=== PATIENT | male | born 1960 | race Caucasian/White ===

== ENCOUNTER 2018-07-22 00:53 | Inpatient (IN) ==
[2018-07-22] MEDS ORDERED: *HR* Heparin 5,000 UNIT/ML VIAL IVP PRN (01:13)
[2018-07-22] MEDS ORDERED: Nitroglycerin 0.4 MG TAB.SUBL SL PRN (01:13)
[2018-07-22] MEDS ORDERED: *HR* Morphine 2 MG/ML SYRINGE IVP PRN (01:13)
[2018-07-22 01:15] LABS: Basophils # 0.1 K/mcL (0.0-0.2); Basophils % 0.7 %; Eosinophils # 0.3 K/mcL (0.0-0.6); Eosinophils % 3.6 %; Hematocrit 43.9 % (37.5-50.1); Hemoglobin 14.7 g/dL (12.9-16.9); Immature Granulocytes % 0.5 % (0-4); Lymphocytes # 3.1 K/mcL (0.6-4.6); Mean Corpuscular HGB Conc 33.5 g/dL (31.6-35.5); Mean Corpuscular Hemoglobin 28.1 pg (28.0-33.3); Mean Corpuscular Volume 83.9 fL (83.0-100.0); Mean Platelet Volume 9.3 fL (9.4-12.4); Monocytes # 0.8 K/mcL (0.0-1.3); Monocytes % 8.4 %; Neutrophils # 4.6 K/mcL (1.6-8.9); Platelet Count 275 K/mcL (140-400); Red Blood Count 5.23 M/mcL (4.19-5.50); Segmented Neutrophils % 51.8 %
[2018-07-22 01:26] LABS: Heparin anti-factor XA UFH 0.41 IU/mL (0.30-0.70); Prothrombin Time 10.9 Seconds (9.4-12.1)
--- NOTE | 2018-07-22 01:32 | Internal Med History&Physical ---
Date of Encounter: 07/22/18 Time of Encounter: 01: Internal Medicine - H&P: HPI Chief complaint: chest pain Admitted From: Home Plans for Post Hospital Care: Home History of present illness: Tacos Moore is a 58 year old man, active smoker with a history of coronary artery disease reporting an VA in 2004 that required stents. He reports having no other medical issues since then. He presents now on transfer from [facility] where he initially went to with complaints of chest pain for 1 week. He states that it started last Monday but has been intermittent. He says it does not feel like when he had an VA as it is not precipitated by physical activity, it feels worse when he is supine and improves when he gets up. He says the pain goes across his chest and is felt in his axillae. The pain was greatly worsened today, severe and constant that brought him to his knees. At [facility] he was seen to have an EKG with normal sinus rhythm as reviewed by me, grossly normal labs but a slight troponin elevation of 0.704. He was given loading dose of aspirin, started on heparin drip and ultimately on nitroglycerin drip to ease the chest pain. On arrival here he states he is now chest pain free. He denies alcohol use. He denies fever, chills, cough, expectoration, nausea, vomiting and abdominal pain. No headaches or lightheadedness. No palpitations. PMHx: As above. Denies any prior surgeries. SHx: Active smoker, denies illicit drug use. FHx: HTN in father. Review of systems: All systems reviewed and negative except as listed above in the HPI. Past Med Surg Social Fam HX - Past Surgical History Additional surgical history: cardiac stent placed in 2003 - Social History Smoking Status: Current every day smoker Packs per day: 1.5 Smokeless Tobacco Status: No Alcohol use: none Drug use: none - Family History Father Cause of : VA Hx Family Cardiac Disorders: Yes Hx Family Respiratory Disorders: No All Systems PM: A 10-system review of systems was performed and is negative for pertinent findings except as documented above in the HPI. - Constitutional Vitals: Temp Pulse Resp BP Pulse Ox 97.7 F 61 15 134/85 94 07/22/18 00:42 07/22/18 00:42 07/22/18 00:42 07/22/18 00:42 07/22/18 00:42 Exam: Vitals: Reviewed General: Well-developed male lying comfortably in bed in no acute distress Skin: Warm and supple. HEENT: Moist mucous membranes. No conjunctivae pallor. Neck: No lymphadenopathy. No JVD. No carotid bruits. No palpable thyroid. Chest: Normal thoracic expansion. Normal breath sounds. Clear to auscultation. Heart: Normal S1 & S2; rhythmic. No rubs or murmurs. Abdomen: Non-distended, soft and non-tender to palpation. No peritoneal reaction. Liver is normal in size. Spleen is not palpable. Extremities: No clubbing, cyanosis or edema. No calf tenderness. Normal distal pulses. Neurological: Awake, alert and oriented to person, place and time. No focal deficits. Psych: Affect appropriate. Internal Med - H&P Results - Labs CBC & Chem 7: 07/22/18 00:59 Labs: Short CBC 07/22/18 Range/Units 00:59 WBC 8.9 (4.3-11.1) K/mcL Hgb 14.7 (12.9-16.9) g/dL Hct 43.9 (37.5-50.1) % Plt Count 275 (140-400) K/mcL Neutrophils # 4.6 (1.6-8.9) K/mcL - Assessment and plan (1) Chest pain Current Visit: Yes Status: Acute Assessment and plan: The patient has had chest pain for about a week. He has the risk factor of underlying CAD and being an active smoker. His EKG shows normal sinus rhythm but he is somewhat bradycardic fluctuating between 55-65. Will obtain repeat EKG, monitor on telemetry, repeat troponins, hold nitro for now but resume if chest pain recurs, continue heparin gtt, TTE in the morning and cardiology consultation. Check lipase too due to description of pain given. Get PA/lat x-ray. Qualifiers: Chest pain type: unspecified Qualified Code(s): R07.9 - Chest pain, unspecified (2) CAD (coronary artery disease) Current Visit: Yes Status: Acute Assessment and plan: Will place on aspirin daily. Qualifiers: Coronary Disease-Associated Artery/Lesion type: [place] artery [place] vs. transplanted heart: [place] heart Associated angina: with unstable angina Qualified Code(s): I25.110 - Atherosclerotic heart disease of [place] coronary artery with unstable angina pectoris (3) Smoker Current Visit: Yes Status: Acute Assessment and plan: Counseled accordingly. (4) DVT prophylaxis Current Visit: Yes Status: Acute Assessment and plan: Will remain on heparin drip. - Time Spent With Patient Total time spent is greater than 50% in coordination of care (as documented) at patient's floor/unit and/or counseling patient: Greater than 35 minutes
[2018-07-22 01:36] LABS: Alanine Aminotransferase 12 Units/L (7-52); Albumin 3.7 g/dL (3.5-5.7); Albumin/Globulin Ratio 1.2 (1.1-2.2); Alkaline Phosphatase 63 Units/L (34-104); Aspartate Amino Transferase 19 Units/L (13-39); BUN/Creatinine Ratio 14 (6-26); Bilirubin,Direct 0.1 mg/dL (0.0-0.2); Bilirubin,Indirect 0.5 mg/dL (0.0-1.2); Bilirubin,Total 0.6 mg/dL (0.3-1.0); Blood Urea Nitrogen 11 mg/dL (6-20); Calcium 9.1 mg/dL (8.6-10.3); Carbon Dioxide 24 mEq/L (23-29); Chloride 103 mEq/L (98-107); Glucose 97 mg/dL (70-105); Lipase 36 Units/L (11-82); Osmolality,Calculated 281 (280-300); Potassium 4.1 mEq/L (3.5-5.1); Sodium 136 mEq/L (136-145); Total Protein 6.7 g/dL (6.4-8.9); eGFR For Non-African Americans > 60 (> 60)
[2018-07-22 01:50] LABS: Troponin I 0.08 ng/mL (< 0.04)
[2018-07-22] MEDS: Heparin 25,000 UNIT/500 ML D5W 25,000 UNIT/500 ML BAG IVC SCH (02:06)
[2018-07-22 02:10] LABS: Estimated Average Glucose 123 mg/dl; Hemoglobin A1C 5.9 %
--- NOTE | 2018-07-22 08:09 | Event Note ---
Date of Encounter: 07/22/18 Time of Encounter: 08:00 Seen and assessed. Agree with plan per night team Exam Gen. NAD CVS. S1 S2 WNL Plan. Chest pain with history of CAD. Continue aspirin, statin and anticoagulation with heparin drip. Obtain 2D echo. Cardiology recs appreciated Patient to have cath
[2018-07-22] MEDS: *HR* Heparin 5,000 UNIT/ML VIAL IVP PRN ×2 (08:34→17:32)
--- NOTE | 2018-07-22 09:29 | Cardiology Consult Note ---
Date of Encounter: 07/22/18 Time of Encounter: 09:30 Assessment and Plan (1) Chest pain Current Visit: Yes Status: Acute Continue to trend troponin, prudent to continue heparin for now in concern for ACS with patient likely able to tolerate it without issues. At this point, his chest discomfort resolved on NTG and is still on NTG drip. A/R/B of stress test versus LHC discussed with him, he wishes to proceed with LHC. Qualifiers: Chest pain type: unspecified Qualified Code(s): R07.9 - Chest pain, unspecified (2) CAD (coronary artery disease) Current Visit: Yes Status: Acute Continue medical management and risk factor modification Qualifiers: Coronary Disease-Associated Artery/Lesion type: [place] artery [place] vs. transplanted heart: [place] heart Associated angina: with unstable angina Qualified Code(s): I25.110 - Atherosclerotic heart disease of [place] coronary artery with unstable angina pectoris Discussion w patient/family: The assessment and plan as outlined above was discussed with the patient and/or family members who expressed understanding and agreement. All questions were answered. Thank you for involving us in the care of your patient. Please call with any questions. History of Present Illness Consult date: 07/22/18 History of present illness: Mr. Moore is a 58 year old male with history of CAD sp [place] 2004, smoker presenting with chest pain from [facility] unlike his previous angina. Troponin checked was elevated at [facility] and transferred here. He notes that his chest pain was left to right across chest radiating into axilla and severe. notes her is very difficult to get to doctor. His pain completely resolved with NTG. Past Med Surg Social Fam HX - Past Surgical History Additional surgical history: cardiac stent placed in 2003 - Social History Smoking Status: Current every day smoker Packs per day: 1.5 Smokeless Tobacco Status: No Alcohol use: none Drug use: none - Family History Father Cause of : [place] Hx Family Cardiac Disorders: Yes Hx Family Respiratory Disorders: No Medications and Allergies Allergy/AdvReac Type Severity Reaction Status Date / Time No Known Allergies Allergy Verified 07/22/18 01:57 All Systems Review: The remainder of the systems were reviewed and are negative - Constitutional Constitutional: no chills, no fever(s) - EENT Eyes: no blurred vision, no loss of vision Nose, mouth and throat: no bleeding gums, no epistaxis - Cardiovascular Cardiovascular: chest pain at rest, no paroxysmal nocturnal dyspnea - Respiratory Respiratory: no hemoptysis, no wheezing - Gastrointestinal Gastrointestinal: no hematemesis, no hematochezia - Genitourinary Genitourinary: no dysuria, no hematuria - Musculoskeletal Musculoskeletal: no abnormal gait, no myalgias - Integumentary Integumentary: no erythema, no unusual bruising - Neurological Neurological: no memory loss, no syncope - Psychiatric Psychiatric: no hallucinations, no panic attacks - Hematological/Lymphatic Hematologic/Lymphatic: no easy bleeding, no easy bruising Physical Examination Vital Signs, Last 4 Hours Temp Pulse Resp BP Pulse Ox 07/22/18 07:54 97.9 F 73 19 136/93 95 General: Conversant HEENT: Atraumatic Neck: No JVD Cardiac: Reg Rate and Rhythm Lungs: Normal Breath Sounds Neuro: Alert and responsive Abdomen: Soft Skin: No rashes noted on visualized skin Musculoskeletal: No Chest Wall Tenderness Extremities: No Edema Results 07/22/18 00:59 07/22/18 00:59 Lab Results 07/22/18 07/22/18 07/22/18 00:59 00:59 00:59 WBC 8.9 Hgb 14.7 Hct 43.9 Plt Count 275 INR 1.0 APTT 72.0 H Sodium 136 Potassium 4.1 Chloride 103 Carbon Dioxide 24 BUN 11 Creatinine 0.80 Glucose 97 Calcium 9.1 Total Bilirubin 0.6 AST 19 ALT 12 Alkaline Phosphatase 63 Troponin I 0.08 H* Lipase 36 07/22/18 08:03 WBC Hgb Hct Plt Count INR APTT Sodium Potassium Chloride Carbon Dioxide BUN Creatinine Glucose Calcium Total Bilirubin AST ALT Alkaline Phosphatase Troponin I 0.06 H* Lipase - EKG Interpretation EKG results cardiology: personally reviewed, sinus rhythm, no diagnostic ischemia
[2018-07-22] MEDS: Aspirin 81 MG TAB.CHEW PO SCH (09:35)
[2018-07-23] MEDS: Heparin 25,000 UNIT/500 ML D5W 25,000 UNIT/500 ML BAG IVC SCH (00:15)
[2018-07-23] MEDS: Aspirin 81 MG TAB.CHEW PO SCH (08:04)
--- NOTE | 2018-07-23 08:05 | Internal Med Progress Note ---
Hospitalist Progress Note - Encounter Date of Encounter: 07/23/18 Time of Encounter: 08:00 - Exam Vitals: Temp Pulse Resp BP Pulse Ox 98 F 62 19 128/78 97 07/23/18 06:45 07/23/18 06:45 07/23/18 06:45 07/23/18 06:45 07/23/18 06:45 Exam: Vitals: Reviewed General: Well-developed male lying comfortably in bed in no acute distress Skin: Warm and supple. HEENT: Moist mucous membranes. No conjunctivae pallor. Neck: No lymphadenopathy. No JVD. No carotid bruits. No palpable thyroid. Chest: Normal thoracic expansion. Normal breath sounds. Clear to auscultation. Heart: Normal S1 & S2; rhythmic. No rubs or murmurs. Abdomen: Non-distended, soft and non-tender to palpation. No peritoneal reaction. Liver is normal in size. Spleen is not palpable. Extremities: No clubbing, cyanosis or edema. No calf tenderness. Normal distal pulses. Neurological: Awake, alert and oriented to person, place and time. No focal deficits. Psych: Affect appropriate. - Assessment and Plan (1) Chest pain Current Visit: Yes Status: Acute Assessment and Plan: Continue aspirin, statin and anticoagulation with heparin drip. Obtain 2D echo. Cardiology recs appreciated Patient had cath today with 2 drug eluting stents placed. Started on aspirin and brillinta and on tirofiban drip post cath (2) CAD (coronary artery disease) Current Visit: Yes Status: Acute Assessment and Plan: Continue aspirin and heparin drip (3) Smoker Current Visit: Yes Status: Acute Assessment and Plan: Counseled to quit. (4) DVT prophylaxis Current Visit: Yes Status: Acute Assessment and Plan: Continue heparin drip. - Time Spent with Patient Total time spent is greater than 50% in coordination of care (as documented) at patient's floor/unit and/or counseling patient: Internal Medicine: Result - Labs CBC & Chem 7: 07/23/18 08:24 07/23/18 08:24 Labs: Cardiac Enzymes 07/22/18 Range/Units 08:03 Troponin I 0.06 H* (< 0.04) ng/mL - ABG Interpretation ABG results: PT/INR, D-dimer PT 10.9 Seconds (9.4-12.1) 07/22/18 00:59 - Impressions Impressions Echocardiogram 07/22/18 00:46 Impressions: LVEF 55-60%. Mild left ventricular diastolic dysfunction. Mild concentric left ventricular hypertrophy. Normal right ventricular structure and function. No significant valvular dysfunction. Chest X-Ray 07/22/18 07:00 IMPRESSION: 1. No radiographic finding to account for patient's chest pain. D/ / Ravi Wang MD / Ravi Wang MD Interpreting Provider: Ravi Wang MD Consult Discharge Plan - Plan Referrals: NONE,PCP [Primary Care Provider] - (1) Chest pain Qualifiers: Chest pain type: unspecified Qualified Code(s): R07.9 - Chest pain, unspecified (2) CAD (coronary artery disease) Qualifiers: Coronary Disease-Associated Artery/Lesion type: [place] artery [place] vs. transplanted heart: [place] heart Associated angina: with unstable angina Qualified Code(s): I25.110 - Atherosclerotic heart disease of [place] coronary artery with unstable angina pectoris
[2018-07-23 08:45] LABS: Basophils # 0.1 K/mcL (0.0-0.2); Basophils % 0.6 %; Eosinophils # 0.3 K/mcL (0.0-0.6); Eosinophils % 3.7 %; Hematocrit 43.6 % (37.5-50.1); Hemoglobin 14.7 g/dL (12.9-16.9); Immature Granulocytes % 0.2 % (0-4); Lymphocytes # 2.3 K/mcL (0.6-4.6); Lymphocytes % 27.5 %; Mean Corpuscular HGB Conc 33.7 g/dL (31.6-35.5); Mean Corpuscular Hemoglobin 28.5 pg (28.0-33.3); Mean Corpuscular Volume 84.7 fL (83.0-100.0); Mean Platelet Volume 9.4 fL (9.4-12.4); Monocytes # 0.8 K/mcL (0.0-1.3); Platelet Count 275 K/mcL (140-400); Red Blood Count 5.15 M/mcL (4.19-5.50); Red Cell Distribution Width 14.1 % (11.5-14.5)
[2018-07-23 09:04] LABS: BUN/Creatinine Ratio 15 (6-26); Blood Urea Nitrogen 14 mg/dL (6-20); Calcium 8.9 mg/dL (8.6-10.3); Carbon Dioxide 27 mEq/L (23-29); Chloride 105 mEq/L (98-107); Glucose 97 mg/dL (70-105); Osmolality,Calculated 284 (280-300); Potassium 4.1 mEq/L (3.5-5.1); Sodium 137 mEq/L (136-145); eGFR For Non-African Americans > 60 (> 60)
[2018-07-23] MEDS ORDERED: Heparin 1,000 UNITS/500 mL 500 ML ONE (09:39)
[2018-07-23] MEDS ORDERED: 0.9 % Sodium Chloride 2,000 ML ONE (09:39)
[2018-07-23] MEDS ORDERED: ISOVUE-370 200 ML INFUS..BTL ONE ×2 (09:40→10:45)
[2018-07-23] MEDS ORDERED: *HR* Heparin 10,000 UNIT/10 ML VIAL ONE (09:40)
[2018-07-23] MEDS ORDERED: Nitroglycerin 1,000 MCG/10 ML VIAL IV ONE (09:40)
[2018-07-23] MEDS ORDERED: *HR* Midazolam HCl 2 MG/2 ML VIAL ONE (09:54)
[2018-07-23] MEDS ORDERED: *HR* FentaNYL (PF) 100 MCG/2 ML VIAL ONE (09:54)
[2018-07-23] MEDS ORDERED: Tirofiban 12.5 MG/250ML 12.5 MG/250 ML BAG ONE (10:45)
[2018-07-23] MEDS ORDERED: *HR* Atropine Sulfate 1 MG/10 ML SYRINGE ONE (10:45)
[2018-07-23] MEDS ORDERED: *HR* Ticagrelor 90 MG TABLET ONE (11:42)
--- NOTE | 2018-07-23 11:54 | Invasive Diagnostic Lab Proc ---
Name: Tacos Moore Date of Study: 07/23/2018 Date: 1960 Ht: 72.0in Medical Record#: [id number] Age: 58 Wt: 186.07lb Gender: Male BSA: 2.07 Order #: [id number] BMI: 25.2 Physicians Procedure Physician: Parish Whipple MD Referring MD: Referring MD: Staff Name Position Time In Harry Potter RT (R) Monitor 09:50 AM TariqReta RT (R) Scrub 09:50 AM Janet Cooney RN Double End Sewer 09:50 AM Erin Medeiros RN Double End Sewer 09:50 AM Indications Indication Non-Stemi Procedures Performed Procedure L HRT ARTERY/VENTRICLE ANGIO PRQ CARD NICK STENT W/ANGIO 1 VSL PRQ CARD NICK STENT W/ANGIO 1 VSL Pre-Procedure Checklist Informed consent is complete signed and on chart. H&P is on chart. ID band is on and ID verified with patient. Patient NPO for procedure The procedure was described for the patient and questions were answered. Blood Pressure: 155/98 ECG is on chart. Rhythm: Sinus Bradycardia Plan of Care Patient will tolerate the procedure without complications. Adequate level of comfort will be maintained. Hemodynamics will remain stable Patient will recover from procedure without complications. Respiratory function will be maintained. Cardiac rhythm will remain stable. Patient temperature will be maintained. Patient and/or family have verbalized understanding of the procedure. Patient Education Chief Complaint/Reason for Test: Cardiac Cath Developmental Category: Adult (18-64 years) Developmentally Appropriate for Age: Yes Learning Barriers: None Education Needs: Procedure Education Method: Verbal Information Taught: Cardiac Cath Educational Evaluation: Able to repeat information Intravenous Access Time IV Size Location DC'd Fluid/Drip Rate Units RN 09:53 AM 20g 1 1/4" Patent On Arrival Lt Antecubital 0.9NaCl 25 ml/hr Erin Medeiros RN Allergies No Known Allergies Vital Signs Time BP (mmHg) HR (bpm) O2 Sat. RR (bpm) LOC 09:50 AM 155 / 98 59 98 % 16 5 = Fully awake and oriented or at pre-proc level 09:50 AM / % 4 = Oriented but drowsy 10:05 AM / % 4 = Oriented but drowsy 10:20 AM / % 4 = Oriented but drowsy 10:35 AM / % 4 = Oriented but drowsy 10:51 AM / % 4 = Oriented but drowsy 11:06 AM / % 4 = Oriented but drowsy 11:21 AM / % 5 = Fully awake and oriented or at pre-proc level 09:53 AM 155 / 98 80 % 14 09:58 AM 147 / 89 59 97 % 8 10:03 AM 142 / 88 56 96 % 14 10:08 AM 139 / 80 54 94 % 15 10:13 AM 144 / 86 65 92 % 12 10:18 AM 137 / 84 59 96 % 10 10:23 AM 147 / 90 57 95 % 15 10:28 AM 157 / 93 55 96 % 12 10:33 AM 155 / 95 52 96 % 14 10:38 AM 159 / 89 48 97 % 11 10:43 AM 144 / 85 56 95 % 11 10:48 AM 152 / 93 50 96 % 11 10:53 AM 155 / 92 56 96 % 19 10:58 AM 159 / 91 52 98 % 9 11:03 AM 172 / 96 53 97 % 10 11:08 AM 155 / 94 52 96 % 12 11:14 AM 166 / 95 47 98 % 12 11:18 AM 173 / 115 57 99 % 9 11:23 AM 174 / 101 56 98 % 8 11:28 AM 169 / 98 51 98 % 10 11:33 AM 167 / 88 54 98 % 9 Procedural Medications Time Medication Dose Units Method Given By 09:56 AM Oxygen 2 L/min nasal cannula Erin Medeiros RN 09:56 AM Versed 1 mg Intravenous Erin Medeiros RN 09:56 AM Fentanyl 50 mcg Intravenous Erni Medeiros RN 10:02 AM Versed 0.5 mg Intravenous Erin Medeiros RN 10:02 AM Fentanyl 25 mcg Intravenous Erin Medeiros RN 10:02 AM Lidocaine 2% 10 ml Subcutaneous Parish Whipple MD 10:14 AM Heparin 4000 units Intravenous Erin Medeiros RN 10:15 AM Aggrastat Bolus: 42 ml Intravenous Erin Medeiros RN 10:15 AM Aggrastat 12.5mg/250ml 15 ml/hr Intravenous Erin Medeiros RN 10:41 AM Nitroglycerin 200 mcg Intracoronary Maik Whipple MD 10:50 AM Heparin 1000 units Intravenous Erin Medeiros RN 11:05 AM Nitroglycerin 100 mcg Intracoronary Maik Whipple MD 11:28 AM Lidocaine 2% 8 ml Subcutaneous Parish Whipple MD 11:32 AM Brilinta 180 mg Orally Janet Cooney RN ASA Classification: CLASS II- Mild systemic disease (i.e. well-controlled diabetes, hypertension, asthma, cigarette smoking) Cece Score Preprocedure Postprocedure Activity 2- Moves 4 extremities sustained head lift Activity 2- Moves 4 extremities sustained head lift Circulation 2- SBP +/= 20 points of pre-anesthetic level Circulation 2- SBP +/= 20 points of pre-anesthetic level Consciousness 2- Awake and alert oriented x 3 Consciousness 2- Awake and alert oriented x 3 O2 Saturation 2- Able to maintain O2 satruation of 92% on room air O2 Saturation 2- Able to maintain O2 satruation of 92% on room air Respiratory 2- Able to deep breathe and cough well Respiratory 2- Able to deep breathe and cough well Total Score 10 Total Score 10 Contrast Agent: Isovue Diagnostic Contrast: 254 ml Total Contrast: 254 ml Fluoro Dose: 24249 mGy Activated Clotting Time Time Seconds to Clot 10:13 AM 156 10:50 AM 214 Procedure Log Time Note Enter By 09:48 AM CathStat 09:49 AM Pt arrived to laboratory coordinator 2 at 09:49 [email or web address] 09:49 AM Patient charges- Angio tray pack, Navilyst 3mm J, Pulse Oximetry and ACIST tubing and transducer [email or web address] 09:49 AM Case Delayed No [email or web address] 09:49 AM Physician arrived 09:49 [email or web address] 09:49 AM Freedom and dulce completed [email or web address] 09:49 AM Sign in performed according to hospital policy. Informed consent was obtained. [email or web address] 09:50 AM Procedure start 09:49 [email or web address] 09:50 AM Harry Potter RT (R) Position: Monitor Time in: 09:50 [email or web address] 09:50 AM Reta Potter RT (R) Position: Scrub Time in: 09:50 [email or web address] 09:50 AM Janet Cooney RN Position: Double End Sewer Time in: 09:50 [email or web address] 09:50 AM Erin Medeiros RN Position: Double End Sewer Time in: 09:50 [email or web address] 09:50 AM Time: 09:50 Patient comfortable and pain free: Yes [email or web address] 09:50 AM Time: 09:50LOC: 5 = Fully awake and oriented or at pre-proc level [email or web address] 09:51 AM ASA Class CLASS II- Mild systemic disease (i.e. well-controlled diabetes, hypertension, asthma, cigarette smoking) [email or web address] 09:51 AM Clinical Presentation: Non-STEMI [email or web address] 09:52 AM Vitals capture started with the following parameters, Patient=Adult, Interval=5 min, Initial Zvkefbuz=858 mmHg, Deflation Rate=5 mmHg, Cuff placed on Right Arm 09:53 AM HR=80 bpm, JGIY=795/98 mmhg, Resp=14 B/min 09:53 AM Recorded ECG: HR=61 Condition=Condition 1 09:54 AM Hair removed from procedure site in procedure lab using clippers. Bilateral groin prepped with Chloraprep by Janet Cooney RN, then patient was draped. Skin intact. [email or web address] 09:56 AM Time: 09:56 Oxygen on at 2 L/min per nasal cannula by Erin Medeiros RN [email or web address] 09:56 AM Time: 09:56 Versed 1 mg Intravenous Given by Erin Medeiros RN [email or web address] 09:56 AM Time: 09:56 Fentanyl 50 mcg Intravenous Given by Erin Medeiros RN [email or web address] 09:58 AM HR=59 bpm, LDRQ=610/89 mmhg, SpO2=97.0 %, Resp=8 B/min, EtCO2=32 mmHg 09:59 AM Pressure channel 1 zero failed. 09:59 AM Pressure channel 1 zero failed. 09:59 AM Pressure channel 1 zero failed. 09:59 AM Pressure channel 1 zero failed. 09:59 AM Pressure channel 1 zero failed. 09:59 AM Pressure channel 1 zero failed. 09:59 AM Pressure channel 1 zeroed. 10:01 AM Time out was performed according to hospital policy. Conscious sedation and anesthesia was achieved (see medication log with in this report above) [email or web address] 10:02 AM Time: 10:02 Versed 0.5 mg Intravenous Given by Erin Medeiros RN [email or web address] 10:02 AM Time: 10:02 Fentanyl 25 mcg Intravenous Given by Erin Medeiros RN [email or web address] 10:02 AM Time: 10:02 10 ml Lidocaine 2% to right groin Subcutaneous Given by Parish Whipple MD [email or web address] 10:03 AM Micro-Introducer Kit utilized for sheath placement [email or web address] 10:03 AM hand injected rt femoral angiogram [email or web address] 10:03 AM HR=56 bpm, QFVL=655/88 mmhg, SpO2=96.0 %, Resp=14 B/min, EtCO2=44 mmHg 10:04 AM Access obtained by percutaneous puncture. 5Fr 10cm Terumo [place] sheath placed in right Femoral artery. [id number] [email or web address] 10:04 AM 5Fr FR 4 [email or web address] AM 0.035 145cm Navilyst 3mmJ wire [id number] [email or web address] 10:05 AM Recorded Pressure: Ao, HR=59, Condition=Condition 1 (Aorta) Ao 130/77/99 10:05 AM Time: 09:50 Patient comfortable and pain free: Yes [email or web address] 10:05 AM Time: 09:50LOC: 4 = Oriented but drowsy [email or web address] 10:06 AM Catheter removed [email or web address] 10:07 AM 5Fr FL 4 catheter [email or web address] AM LCA angiography performed in multiple views. [email or web address] 10:08 AM Recorded Pressure: Ao, HR=58, Condition=Condition 1 (Aorta) Ao 120/74/94 10:08 AM HR=54 bpm, CSIZ=388/80 mmhg, SpO2=94.0 %, Resp=15 B/min, EtCO2=38 mmHg 10:09 AM Catheter removed [email or web address] 10:09 AM 5Fr SRC catheter inserted over the wire [id number] [email or web address] 10:10 AM drawing ACT [email or web address] 10:11 AM Recorded Pressure: Ao, HR=60, Condition=Condition 1 (Aorta) Ao 130/74/98 10:11 AM RCA angiography performed in multiple views. [email or web address] 10:12 AM Coronary Dominance: right [email or web address] 10:12 AM Catheter removed [email or web address] 10:12 AM Lesion found in Mid LAD. Pre Stenosis: 95 Pre KYLIE Flow: [email or web address] 10:12 AM Mid/Distal Left Anterior Descending Coronary Artery and diagonal branches with 95% stenosis. If graft is supplying this area, 0 % stenosis [email or web address] 10:12 AM 5Fr Pigtail catheter [email or web address] AM At 10:13 the ACT was 156 seconds. [email or web address] 10:13 AM HR=65 bpm, WPUZ=274/86 mmhg, SpO2=92.0 %, Resp=12 B/min, EtCO2=40 mmHg 10:13 AM Inflation device was opened. [email or web address] 10:14 AM Recorded Pressure: LV, HR=68, Condition=Condition 1 (Left Ventricle) LV 118/4/4 10:14 AM Time: 10:14 Heparin 4000 units Intravenous Given by Erin Medeiros RN [email or web address] 10:14 AM Recorded Pressure: LV, Ao, HR=62, Condition=Condition 1 (Left Ventricle) LV 121/-9/-7, (Aorta) Ao 118/63/90 10:14 AM Catheter removed [email or web address] 10:15 AM 6Fr XB LAD 3.5 Paulina Bright-Tip guide catheter was used to cannulate the PCI vessel successfully. reused? No [email or web address] 10:15 AM Time: 10:15 Aggrastat Bolus: 42 ml Intravenous Given by Erin Medeiros RN Young pump [email or web address] 10:16 AM Time: 10:15 Aggrastat 12.5mg/250ml 15 ml/hr Intravenous Given by Erin Medeiros RN Young pump [email or web address] 10:16 AM Guide catheter removed intact. [email or web address] 10:18 AM HR=59 bpm, QKZU=780/84 mmhg, SpO2=96.0 %, Resp=10 B/min, EtCO2=41 mmHg 10:18 AM 6Fr XB4.0 Paulina Bright-Tip guide catheter was used to cannulate the PCI vessel successfully. reused? No [email or web address] 10:20 AM .014 BMW [place] 190cm guide wire across target lesion- successful. reused? No [email or web address] 10:20 AM Time: 10:05 Patient comfortable and pain free: Yes [email or web address] 10:20 AM Time: 10:05LOC: 4 = Oriented but drowsy [email or web address] 10:23 AM 2.0 mm x 12 mm Emerge Monorail balloon across target lesion- successful. reused? No [email or web address] 10:23 AM HR=57 bpm, VWVH=277/90 mmhg, SpO2=95.0 %, Resp=15 B/min, EtCO2=38 mmHg 10:24 AM Balloon inflated @ 6 wenceslao for 8 seconds [email or web address] 10:25 AM Balloon inflated @ 6 wenceslao for 8 seconds [email or web address] 10:25 AM Balloon catheter removed intact. [email or web address] 10:28 AM 2.25mm x 20mm Synergy drug-eluting stent across target lesion- successful Lot #[id number] [email or web address] 10:28 AM HR=55 bpm, DUMJ=820/93 mmhg, SpO2=96.0 %, Resp=12 B/min, EtCO2=42 mmHg 10:29 AM Stent delivery system removed intact.unable to cross [email or web address] 10:30 AM .014 [employer] [place] 190cm guide wire across target lesion- successful. reused? No [email or web address] 10:33 AM stent advanced [email or web address] 10:33 AM HR=52 bpm, ABBA=940/95 mmhg, SpO2=96.0 %, Resp=14 B/min, EtCO2=38 mmHg 10:34 AM Stent delivery system removed intact. unable to cross [email or web address] 10:35 AM 2.2gkg72lc balloon advanced [email or web address] 10:35 AM Time: 10:20LOC: 4 = Oriented but drowsy [email or web address] 10:35 AM Time: 10:20 Patient comfortable and pain free: Yes [email or web address] 10:36 AM Balloon inflated @ 9 wenceslao for 11 seconds [email or web address] 10:36 AM Balloon inflated @ 10 wenceslao for 13 seconds [email or web address] 10:36 AM Balloon inflated @ 10 wenceslao for 9 seconds [email or web address] 10:37 AM Balloon catheter removed intact. [email or web address] 10:37 AM 2.14sko04nb synergy advanced [email or web address] 10:38 AM HR=48 bpm, LXRJ=368/89 mmhg, SpO2=97.0 %, Resp=11 B/min 10:39 AM Stent deployed @ 9 wenceslao for 9 seconds [email or web address] 10:39 AM Stent balloon reinflated @ 12 wenceslao for 8 seconds [email or web address] 10:40 AM Stent balloon reinflated @ 14 wenceslao for 6 seconds [email or web address] 10:40 AM Stent delivery system removed intact. [email or web address] 10:41 AM Time: 10:41 Nitroglycerin 200 mcg Intracoronary Given by Maik Whipple MD [email or web address] 10:42 AM Guide wire removed intact. [email or web address] 10:43 AM Guide wire removed intact. [email or web address] 10:43 AM Guide catheter removed intact. [email or web address] 10:43 AM HR=56 bpm, CTHU=647/85 mmhg, SpO2=95.0 %, Resp=11 B/min, EtCO2=37 mmHg 10:44 AM Lesion found in Proximal RCA. Pre Stenosis: 80 Pre KYLIE Flow: [email or web address] 10:44 AM Lesion found in Mid RCA. Pre Stenosis: 80 Pre KYLIE Flow: [email or web address] 10:45 AM 6Fr JR 4 Paulina Bright-Tip guide catheter was used to cannulate the PCI vessel successfully. reused? No [email or web address] 10:45 AM Recorded Pressure: Ao, HR=55, Condition=Condition 1 (Aorta) Ao 145/79/106 10:47 AM BMW wire advanced [email or web address] 10:47 AM drawing ACT [email or web address] 10:48 AM HR=50 bpm, IJZN=421/93 mmhg, SpO2=96.0 %, Resp=11 B/min 10:50 AM BMW wire out to reshape [email or web address] 10:50 AM BMW wire reinserted [email or web address] 10:50 AM At 10:50 the ACT was 214 seconds. [email or web address] 10:51 AM Time: 10:50 Heparin 1000 units Intravenous Given by Erin Medeiros RN [email or web address] 10:51 AM Time: 10:35LOC: 4 = Oriented but drowsy [email or web address] 10:51 AM Time: 10:35 Patient comfortable and pain free: Yes [email or web address] 10:53 AM 2.0 mm x 20 mm Emerge Monorail balloon across target lesion- successful. reused? No [email or web address] 10:53 AM HR=56 bpm, AVZY=767/92 mmhg, SpO2=96.0 %, Resp=19 B/min, EtCO2=38 mmHg 10:54 AM Balloon inflated @ 6 wenceslao for 9 seconds [email or web address] 10:55 AM Balloon inflated @ 12 wenceslao for 8 seconds [email or web address] 10:55 AM Balloon inflated @ 12 wenceslao for 4 seconds [email or web address] 10:56 AM Balloon catheter removed intact. [email or web address] 10:57 AM 4.0mm x 28mm Cordis EluNIR drug-eluting stent across target lesion- successful Lot #[id number] [email or web address] 10:58 AM 2nd BMW wire advanced [email or web address] 10:58 AM HR=52 bpm, KYXB=793/91 mmhg, SpO2=98.0 %, Resp=9 B/min, EtCO2=39 mmHg 11:00 AM Stent delivery system removed intact. not deployed [email or web address] 11:01 AM 2.5 mm x 20 mm Emerge Monorail balloon across target lesion- successful. reused? No [email or web address] 11:01 AM Balloon inflated @ 10 wenceslao for 11 seconds [email or web address] 11:02 AM Balloon inflated @ 10 wenceslao for 8 seconds [email or web address] 11:02 AM Balloon inflated @ 12 wenceslao for 10 seconds [email or web address] 11:03 AM Balloon catheter removed intact. [email or web address] 11:03 AM HR=53 bpm, CISQ=446/96 mmhg, SpO2=97.0 %, Resp=10 B/min 11:05 AM 3.5mm x 12mm Cordis EluNIR drug-eluting stent across target lesion- successful Lot #[id number] [email or web address] 11:05 AM Time: 11:05 Nitroglycerin 100 mcg Intracoronary Given by Maik Whipple MD [email or web address] 11:06 AM Time: 10:51LOC: 4 = Oriented but drowsy [email or web address] 11:06 AM Time: 10:51 Patient comfortable and pain free: Yes [email or web address] 11:06 AM Stent delivery system removed intact. not deployed [email or web address] 11:07 AM 3.0 mm x 20 mm Emerge Monorail balloon across target lesion- successful. reused? No [email or web address] 11:08 AM HR=52 bpm, TTMQ=409/94 mmhg, SpO2=96.0 %, Resp=12 B/min 11:08 AM Balloon inflated @ 9 wenceslao for 12 seconds [email or web address] 11:09 AM Balloon inflated @ 6 wenceslao for 10 seconds [email or web address] 11:09 AM Balloon inflated @ 10 wenceslao for 5 seconds [email or web address] 11:10 AM Balloon inflated @ 10 wenceslao for 9 seconds [email or web address] 11:10 AM Balloon inflated @ 12 wenceslao for 8 seconds [email or web address] 11:11 AM Balloon catheter removed intact. [email or web address] 11:11 AM 3.7rrz30wg elunir advanced [email or web address] 11:13 AM Stent delivery system removed intact. not deployed [email or web address] 11:14 AM HR=47 bpm, MPJB=077/95 mmhg, SpO2=98.0 %, Resp=12 B/min 11:14 AM 3.5mm x 12mm Synergy drug-eluting stent across target lesion- successful Lot #[id number] [email or web address] 11:16 AM Stent deployed @ 9 wenceslao for 8 seconds [email or web address] 11:16 AM Stent balloon reinflated @ 11 wenceslao for 7 seconds [email or web address] 11:17 AM Stent balloon reinflated @ 11 wenceslao for 16 seconds [email or web address] 11:17 AM Stent balloon reinflated @ 11 wenceslao for 6 seconds [email or web address] 11:18 AM Stent delivery system removed intact. [email or web address] 11:18 AM HR=57 bpm, VUHV=902/115 mmhg, SpO2=99.0 %, Resp=9 B/min, EtCO2=35 mmHg 11:19 AM 4.6wiy89eu elunir advanced [facility] 11: AM 2nd wire removed [email or web address] 11: AM Time: 11:06LOC: 4 = Oriented but drowsy [email or web address] 11:23 AM Stent deployed @ 11 wenceslao for 10 seconds [email or web address] 11:23 AM HR=56 bpm, WAWS=161/101 mmhg, SpO2=98.0 %, Resp=8 B/min 11:23 AM Stent balloon reinflated @ 14 wenceslao for 12 seconds [email or web address] 11:24 AM Stent balloon reinflated @ 16 wencesalo for 12 seconds [email or web address] 11: AM Stent delivery system removed intact. 11: AM Guide wire removed intact. 11: AM Lesion found in RPL. Pre Stenosis: 50 Pre KYLIE Flow: [facility] 11: AM Right Coronary, Right Posterior Descending Arteries with Right Posterolateral and Acute Marginal branches with 50 % stenosis. If graft is supplying this area, 0 % stenosis [facility]11 05: AM Guide catheter removed intact. [facility] 11: AM HR=51 bpm, TWMV=741/98 mmhg, SpO2=98.0 %, Resp=10 B/min 11: AM Time: :28 8 ml Lidocaine 2% to right groin Subcutaneous Given by Parish Whipple MD [facility] 11:30 AM Arterial sheath pulled, Angio-seal closure device used and was Successful [id number] S/N. [facility] 11:30 AM Procedure completed at 11:30 07/23/2018 [place] [id number] 11: AM Sign out completed: Radiation Dose 3167.65 mGy, 51800 cGy/cm2 Fluoro Time: 33.4 Isovue 370 - 200ml contrast 254 ml given by Parish Whipple MD. Complications: None. 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 Cardiac Rehab Consult needed: YesConfirmed administered medications: Yes [email or web address] 11:31 AM Isovue 370 - 200ml,2 Bottle(s) used. [email or web address] 11:31 AM Estimated Blood Loss: less than 20cc [email or web address] 11:31 AM Post ECG Sinus Bradycardia [email or web address] 11:31 AM Post Blood Pressure 169/98 [email or web address] 11:31 AM Information taught Cardiac Cath, PCI, and Angioseal [email or web address] 11:31 AM Education needs Procedure, Plan of Care, and Disease Process [email or web address] 11:31 AM Learning barriers :Sedated [email or web address] 11:31 AM Education Methods Verbal [email or web address] 11:32 AM Education evaluation Needs further instruction [email or web address] 11:32 AM Site status No bleeding/hematoma - Rt Groin as reported by Reta Potter RT (R) at 11:32 [email or web address] 11:32 AM Opsite applied [email or web address] 11:32 AM Delay to floor No [email or web address] 11:32 AM Complications: None [email or web address] 11:32 AM Time: 11:32 Brilinta 180 mg Orally Given by Janet Cooney RN [email or web address] 11:33 AM Family placed in consult room. [email or web address] 11:33 AM HR=54 bpm, CELN=636/88 mmhg, SpO2=98.0 %, Resp=9 B/min 11:36 AM Vitals capture stopped. 11:36 AM 11:36 Post Pulses Bilateral DP & PT 2+ [email or web address] 11:36 AM Time: 11:21 Patient comfortable and pain free: [email or web address] 11:36 AM Time: 11:21LOC: 5 = Fully awake and oriented or at pre-proc level [email or web address] 11:40 AM Report given to genaro LIU Pt taken to E Room #23. 11:40 [email or web address] 11:47 AM Patient out of room: 11:47 [email or web address] Complications Complication None None Hemodynamics Pressures Site Systolic/A Wave Diastolic/V Wave Mean AO 130 77 99 AO 120 74 94 AO 130 74 98 LV 118 4 4 LV 121 -9 -7 AO 118 63 90 AO 145 79 106 Post Procedure Information Blood Pressure: 169/98 mmHg Rhythm: Sinus Bradycardia Post procedural instructions were given Closure Device Time Device Success/Fail 07/23/2018 11:30:00 AM Angio-Seal VIP Successful Site Checks Time Location Status Staff Sheath In? Note 11:32 AM Rt Groin No bleeding/hematoma Reta Potter RT (R) Pulses Time Site Pre-Procedure Post-Procedure Note 07/23/2018 8:18:00 AM Bilateral DP & PT 2+ 07/23/2018 8:18:00 AM Bilateral radial 2+ 11:36:00 AM Bilateral DP & PT 2+ Updated by Harry Potter RT (R) on 07/23/2018 11:47:22 AM RT Anant electronically signed on 07/23/2018 11:47:55 AM with status of Final
[2018-07-23] MEDS ORDERED: Tirofiban 12.5 MG/250ML 12.5 MG/250 ML BAG IVC SCH (12:00)
[2018-07-23] MEDS: *HR* Ticagrelor 90 MG TABLET PO SCH (20:12)
[2018-07-24 05:26] LABS: Basophils % 0.4 %; Eosinophils # 0.3 K/mcL (0.0-0.6); Eosinophils % 2.7 %; Hematocrit 43.2 % (37.5-50.1); Hemoglobin 14.5 g/dL (12.9-16.9); Immature Granulocytes % 0.3 % (0-4); Lymphocytes # 2.3 K/mcL (0.6-4.6); Lymphocytes % 22.8 %; Mean Corpuscular HGB Conc 33.6 g/dL (31.6-35.5); Mean Corpuscular Hemoglobin 28.2 pg (28.0-33.3); Mean Corpuscular Volume 83.9 fL (83.0-100.0); Mean Platelet Volume 9.6 fL (9.4-12.4); Monocytes # 0.9 K/mcL (0.0-1.3); Monocytes % 9.3 %; Neutrophils # 6.4 K/mcL (1.6-8.9); Platelet Count 250 K/mcL (140-400); Red Blood Count 5.15 M/mcL (4.19-5.50); Segmented Neutrophils % 64.5 %
[2018-07-24 05:27] LABS: BUN/Creatinine Ratio 13 (6-26); Blood Urea Nitrogen 11 mg/dL (6-20); Calcium 8.7 mg/dL (8.6-10.3); Carbon Dioxide 25 mEq/L (23-29); Chloride 106 mEq/L (98-107); Glucose 91 mg/dL (70-105); Osmolality,Calculated 285 (280-300); Potassium 3.9 mEq/L (3.5-5.1); Sodium 138 mEq/L (136-145); eGFR For Non-African Americans > 60 (> 60)
[2018-07-24 05:28] LABS: Chol/HDL Ratio 4.2 (0-4.9)
[2018-07-24] MEDS: *HR* Ticagrelor 90 MG TABLET PO SCH (07:39)
[2018-07-24] MEDS: Aspirin 81 MG TAB.CHEW PO SCH (07:39)
[2018-07-24 07:54] VITALS: BP 107/78
--- NOTE | 2018-07-24 10:30 | Cardiology Progress Note ---
Date of Encounter: 07/24/18 Time of Encounter: 10:00 Assessment and Plan (1) Chest pain Current Visit: Yes Status: Acute NSTEMI with troponin up to 0.08. S/p C with PCI to the LAD and RCA. There was no complication from his procedure. Importance of DAPT with asa and brilinta uninterrupted for min one year reviewed with patient and he voiced understanding. Continue statin. No bb secondary to HR in the 50's intermittently. recommend pt to fill medications here prior to leaving. Cardiac rehab. Out-pt f/u will be coordinated by [facility]. Qualifiers: Chest pain type: unspecified Qualified Code(s): R07.9 - Chest pain, unspecified (2) CAD (coronary artery disease) Current Visit: Yes Status: Acute H/o RI and PCI in 2004. S/p PCI 07/23/18. See plan above. Qualifiers: Coronary Disease-Associated Artery/Lesion type: [place] artery [place] vs. transplanted heart: [place] heart Associated angina: with unstable angina Qualified Code(s): I25.110 - Atherosclerotic heart disease of [place] coronary artery with unstable angina pectoris Discussion w patient/family: The assessment and plan as outlined above was discussed with the patient and/or family members who expressed understanding and agreement. All questions were answered. Thank you for involving us in the care of your patient. Please call with any questions. Objective Vital Signs, Last 4 Hours Temp Pulse Resp BP Pulse Ox 07/24/18 07:53 97.6 F 63 18 107/78 96 Results 07/24/18 04:32 07/24/18 04:32 Lab Results 07/24/18 07/24/18 04:32 04:32 WBC 9.9 Hgb 14.5 Hct 43.2 Plt Count 250 Sodium 138 Potassium 3.9 Chloride 106 Carbon Dioxide 25 BUN 11 Creatinine 0.86 Glucose 91 Calcium 8.7 Magnesium 2.0 Consult Discharge Plan - Plan Additional Instructions: RISK FACTORS: STOP SMOKING: If you smoke, STOP. Smoking or tobacco use significantly increases your risk of heart disease because nicotine causes the arteries to narrow or constrict. It also causes fats to stick to the artery. Your chances of having a heart attack are greatly increased if you continue to smoke. For more information, call the education line for smoking cessation 5-034-LNXVPIZ EAT A LOW FAT/CHOLESTEROL/SODIUM DIET: This diet may help reduce your chances of having a heart attack. LIFTING: Avoid lifting anything more than 10 pounds for 5-7 days Prior to straining, laughing, sneezing and/or coughing, apply manual pressure directly over insertion site. ACTIVITY: You may walk or climb stairs as tolerated You can resume sexual activity as tolerated In general, you are encouraged to engage in a minimum of 30 minutes or more of moderate intensity physical activity, such as brisk walking, daily or at least 3-4 times weekly BATHING Do not submerge the site into water (bath tub, hot tub, swimming pool) for 1 week. This can be a source for infection into the blood stream. You may shower after 24 hours SITE CARE: After 24 hours, you may remove the dressing and leave the site open to air. Keep the site clean and dry. Clean gently and pat dry. You can expect bruising and tenderness that gradually resolve within a week or two. Return to work as instructed per your physician Resume driving as instructed per physician Keep all scheduled follow up appointments Resume medications as instructed IMPORTANT: If prescribed a Platelet Aggregation Inhibitor such as, Plavix, Brilinta or Effient: Duration of therapy is minimum one year These medications are often used in combination with Aspirin in prevention of future heart attacks Never discontinue unless consult with your Director Food And Beverage STROKE (CVA) Risk factors for a stroke are: Age, cigarette smoking, diabetes, excessive alcohol consumption, family history, high blood pressure, overweight, physical inactivity, prior stroke, heart attack, diagnosis of carotid artery stenosis or other artery disease. Warning signs: Sudden numbness or weakness of the face, arm or leg; especially on one side of the body, sudden confusion, trouble speaking or understanding, sudden trouble seeing in one or both eyes, sudden trouble walking, dizziness, loss of balance or coordination, sudden severe headache with no cause. Call 911 or go to the Emergency Room. CONGESTIVE HEART FAILURE: If you have been diagnosed with Congestive Heart Failure (CHF) and your symptoms return, make an appointment with your physician Weigh yourself daily. Notify your physician if you have a weight gain of two or more pounds in one day or five or more pounds in one week. If you experience any difficulty breathing, please call 911 BLEEDING: Although the risk of bleeding is minimal, it can happen. If you have any bleeding from the site, apply firm pressure above the puncture site for 10-15 minutes. If the bleeding does not stop, continue manual pressure and call 911 Contact your physician if: You develop a fever greater than 101 degrees Fahrenheit Your site becomes reddened or has any drainage You have an increase in pain or burning at the site or if a large knot forms at the site. If you experience chest pain, shortness of breath, dizziness, or extreme tiredness, stop the activity and rest. Please notify your physicians office if you experience any of these symptoms and they are not relieved by rest please call 911! Referrals: Mary Pastor, CLIFF [Advanced Practice Nurse] - 08/06/18 9:30 am
--- NOTE | 2018-07-24 10:56 | Discharge Summary ---
- NOTES TO OUTPATIENT PROVIDER Notes to Outpatient Provider: Follow-up with cardiology within 1-2 weeks of hospital discharge. Orders not resulted at time of discharge: Pending orders 07/23/18 11:46 ECG 12 lead ECG [ECG] Routine ECG 12 lead ECG [ECG] Stat 07/24/18 07:00 ECG 12 lead ECG [ECG] Routine 07/25/18 04:00 Basic Metabolic Panel AM 0400 CBC [Complete Blood Count] [HEME] AM 0400 Magnesium AM 0400 Phosphorous AM 0400 07/26/18 04:00 Basic Metabolic Panel AM 0400 CBC [Complete Blood Count] [HEME] AM 0400 Magnesium AM 0400 Phosphorous AM 0400 07/27/18 04:00 Basic Metabolic Panel AM 0400 CBC [Complete Blood Count] [HEME] AM 0400 Magnesium AM 0400 Phosphorous AM 0400 07/28/18 04:00 Basic Metabolic Panel AM 0400 CBC [Complete Blood Count] [HEME] AM 0400 Magnesium AM 0400 Phosphorous AM 0400 07/29/18 04:00 Basic Metabolic Panel AM 0400 CBC [Complete Blood Count] [HEME] AM 0400 Magnesium AM 0400 Phosphorous AM 0400 Date of Encounter: 07/24/18 Time of Encounter: 10:54 - Discharge Diagnosis (1) NSTEMI (non-ST elevated myocardial infarction) Priority: Primary Status: Resolved (2) Chest pain Priority: Secondary Status: Resolved Qualifiers: Chest pain type: unspecified Qualified Code(s): R07.9 - Chest pain, unspecified (3) CAD (coronary artery disease) Priority: Secondary Status: Chronic Qualifiers: Coronary Disease-Associated Artery/Lesion type: [place] artery [place] vs. transplanted heart: [place] heart Associated angina: with unstable angina Qualified Code(s): I25.110 - Atherosclerotic heart disease of [place] coronary artery with unstable angina pectoris (4) Smoker Priority: Secondary Status: Chronic (5) DVT prophylaxis Priority: Secondary Status: Chronic Hospital course: Mr. Moore is a 58 year old male past medical history significant for tobacco abuse, coronary artery disease with a previous KS in 2004 that required a stent placement. Patient was transferred to [facility] from [facility] where he presented due to 1 week history of intermittent chest pain. Patient admitted to the hospital due to NSTEMI, underwent LHC with successful PTCA/throat slow acting stent placement in the mid LAD, proximal RCA and in the mid RCA. Cardiology recommended dual antiplatelet therapy for at least a year, plus a statin, recommended against beta blockers due to bradycardia. Patient educated about importance of smoking cessation. Patient is hemodynamically stable to be discharged home. - Time Spent with Patient Total time spent providing and/or coordinating discharge services: Less than 30 minutes - Discharge Medications Prescriptions: Aspirin 81 mg PO DAILY 30 Days #30 tab.chew Atorvastatin [Lipitor] 40 mg PO HS 30 Days #30 tablet Ticagrelor [Brilinta] 90 mg PO BID 30 Days #60 tablet Home Medications: Aspirin 81 mg PO DAILY 30 Days #30 tab.chew 07/24/18 [Rx] Atorvastatin [Lipitor] 40 mg PO HS 30 Days #30 tablet 07/24/18 [Rx] Ticagrelor [Brilinta] 90 mg PO BID 30 Days #60 tablet 07/24/18 [Rx] Allergies/Adverse Reactions: Allergy/AdvReac Type Severity Reaction Status Date / Time clopidogrel [From Plavix] AdvReac See Verified 07/24/18 08:23 Comments Date of admission: 07/22/18 00:53 Primary care physician: PCP NONE Consults: 07/22/18 00:46 Consult to Cardiology [CONS] Routine Comment: Consulting Provider: Cardiology Krystal Reason for Consult: Patient admitted here from [facility] for nstemi on heparin drip and required ntg drip for pain Call Completed: No 07/23/18 11:46 Consult to Cardiac Rehabilitation-Phase1 [CONS] Routine Comment: Reason for Consult: AMI Call Completed: Yes Consult to Nurse Navigator [CONS] Routine Comment: - Constitutional Vitals: Temp Pulse Resp BP Pulse Ox 97.6 F 63 18 107/78 96 07/24/18 07:53 07/24/18 07:53 07/24/18 07:53 07/24/18 07:53 07/24/18 07:53 Exam: General: Alert and oriented 4. In no acute distress. Skin: Normal color, no rash, no lesions. HEENT: EOM, pupils equal, round and reactive. Cardiovascular: RRR, Normal S1 & S2, no rubs, murmurs or gallops. Lungs: Decreased breath sounds bilaterally, no wheezes or crackles. Abdomen: Soft, non-tender, no rigidity. Extremities: No deformity, no edema or tenderness, no joint swelling or clubbing. Neurological: Normal cognition and motor skills. Rest of the physical exam is non contributory - Patient Status Disposition: Home, Self-Care Condition: Good Functional capacity at discharge: independent ambulation Overall status at discharge: patient is back to baseline - Discharge Instructions Instructions: Chest Pain (DC) Follow Up With: Mary Pastor CNP [Advanced Practice Nurse] - 08/06/18 9:30 am Additional Instructions: RISK FACTORS: STOP SMOKING: If you smoke, STOP. Smoking or tobacco use significantly increases your risk of heart disease because nicotine causes the arteries to narrow or constrict. It also causes fats to stick to the artery. Your chances of having a heart attack are greatly increased if you continue to smoke. For more information, call the education line for smoking cessation 1-753-OGWDOPC EAT A LOW FAT/CHOLESTEROL/SODIUM DIET: This diet may help reduce your chances of having a heart attack. LIFTING: Avoid lifting anything more than 10 pounds for 5-7 days Prior to straining, laughing, sneezing and/or coughing, apply manual pressure directly over insertion site. ACTIVITY: You may walk or climb stairs as tolerated You can resume sexual activity as tolerated In general, you are encouraged to engage in a minimum of 30 minutes or more of moderate intensity physical activity, such as brisk walking, daily or at least 3-4 times weekly BATHING Do not submerge the site into water (bath tub, hot tub, swimming pool) for 1 week. This can be a source for infection into the blood stream. You may shower after 24 hours SITE CARE: After 24 hours, you may remove the dressing and leave the site open to air. Keep the site clean and dry. Clean gently and pat dry. You can expect bruising and tenderness that gradually resolve within a week or two. Return to work as instructed per your physician Resume driving as instructed per physician Keep all scheduled follow up appointments Resume medications as instructed IMPORTANT: If prescribed a Platelet Aggregation Inhibitor such as, Plavix, Brilinta or Effient: Duration of therapy is minimum one year These medications are often used in combination with Aspirin in prevention of future heart attacks Never discontinue unless consult with your Oncology Pharmacist STROKE (CVA) Risk factors for a stroke are: Age, cigarette smoking, diabetes, excessive alcohol consumption, family history, high blood pressure, overweight, physical inactivity, prior stroke, heart attack, diagnosis of carotid artery stenosis or other artery disease. Warning signs: Sudden numbness or weakness of the face, arm or leg; especially on one side of the body, sudden confusion, trouble speaking or understanding, sudden trouble seeing in one or both eyes, sudden trouble walking, dizziness, loss of balance or coordination, sudden severe headache with no cause. Call 911 or go to the Emergency Room. CONGESTIVE HEART FAILURE: If you have been diagnosed with Congestive Heart Failure (CHF) and your symptoms return, make an appointment with your physician Weigh yourself daily. Notify your physician if you have a weight gain of two or more pounds in one day or five or more pounds in one week. If you experience any difficulty breathing, please call 911 BLEEDING: Although the risk of bleeding is minimal, it can happen. If you have any bleeding from the site, apply firm pressure above the puncture site for 10-15 minutes. If the bleeding does not stop, continue manual pressure and call 911 Contact your physician if: You develop a fever greater than 101 degrees Fahrenheit Your site becomes reddened or has any drainage You have an increase in pain or burning at the site or if a large knot forms at the site. If you experience chest pain, shortness of breath, dizziness, or extreme tiredness, stop the activity and rest. Please notify your physicians office if you experience any of these symptoms and they are not relieved by rest please call 911! - Diet and Activity Activity: resume usual activities as tolerated Diet: advance to your usual diet
--- NOTE | 2018-07-27 18:35 | Electrocardiograph Report ---
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
== END 2018-07-24 12:07 | disposition home or self-care (01) | DRG 174 ==
LOC: 2NENU → SUATTDRO 00:53
PROVIDERS: ADMIT Internal Medicine; ATTEND Internal Medicine